=== PATIENT | male | born 1965 | race Two or more races ===

== ENCOUNTER 2024-04-16 12:40 | Emergency (ER) | payer MEDICAID, OTHER ==
[~2024-04-16] VITALS: Ht 154.9 cm; Wt 75.4 kg
[2024-04-16 14:15] VITALS: BP 124/80; PULSE 71; RESP 20; TEMP 99.1; O2SAT 96
[2024-04-16] MEDS ORDERED: BACL10TA PO (14:19)
[2024-04-16] MEDS ORDERED: NAPR-746 PO (14:19)
== END 2024-04-16 14:35 | disposition home or self-care (01) ==
LOC: ER 12:40
DX: S56.811A Strain of other muscles, fascia and tendons at forearm level, right arm, initial encounter (principal); Z79.899 Other long term (current) drug therapy; X50.0XXA Overexertion from strenuous movement or load, initial encounter; Y93.89 Activity, other specified; Y92.89 Other specified places as the place of occurrence of the external cause; Y99.8 Other external cause status